=== PATIENT | female | born 1985 | race Hispanic/Latino ===

== ENCOUNTER 2019-12-15 18:01 | Emergency (ER) | payer SELFPAY ==
[2019-12-15 19:29] LABS: RAPID GROUP A STREP NEGATIVE (NEGATIVE)
== END 2019-12-15 20:10 | disposition home or self-care (01) ==
LOC: EDH 18:01
DX: J02.9 Acute pharyngitis, unspecified (principal); Z98.890 Other specified postprocedural states
CPT/HCPCS: 87804; 87880

== ENCOUNTER 2019-12-18 09:03 | Emergency (ER) | payer SELFPAY | END 2019-12-18 11:50 | disposition home or self-care (01) | LOC: EDH 09:03 | DX: K13.79 Other lesions of oral mucosa (principal); Z98.890 Other specified postprocedural states | CPT/HCPCS: 99281 ==

== ENCOUNTER 2020-02-24 19:33 | Emergency (ER) | payer OTHER | END 2020-02-24 21:29 | disposition home or self-care (01) | LOC: EDH 19:33 | DX: R07.89 Other chest pain (principal); R19.7 Diarrhea, unspecified; R03.0 Elevated blood-pressure reading, without diagnosis of hypertension; R11.0 Nausea; M25.512 Pain in left shoulder; Z87.891 Personal history of nicotine dependence; Z98.51 Tubal ligation status; Z98.890 Other specified postprocedural states | CPT/HCPCS: 87804 ==

== ENCOUNTER 2021-10-18 17:22 | Emergency (ER) | payer SELFPAY ==
[~2021-10-18] VITALS: Ht 162.6 cm; Wt 68.0 kg
[2021-10-18 18:40] LABS: BASOPHILS % (AUTO) 0.4 % (0.0-5.0); EOSINOPHILS % (AUTO) 1.5 % (0.0-8.0); HEMATOCRIT 43.5 % (36-48); LYMPHOCYTES % (AUTO) 9.3 % (21.0-51.0); MEAN CORPUSCULAR HEMOGLOBIN 31.5 pg (27.0-33.0); MEAN CORPUSCULAR HGB CONC 33.6 g/dL (32.0-36.0); NEUTROPHILS % (AUTO) 76.4 % (40.0-77.0); PLATELET COUNT (AUTO) 399 K/uL (130-400); RED BLOOD CELL COUNT(AUTO) 4.63 MIL/uL (4.00-5.50); RED CELL DISTRIBUTION WIDTH 12.9 % (11.0-15.5); WHITE BLOOD COUNT (AUTO) 13.9 K/uL (4.8-10.8)
[2021-10-18 18:50] LABS: CREATININE 0.8 mg/dL (0.5-1.5); POTASSIUM 3.4 mmol/L (3.5-5.1)
[2021-10-18 18:57] LABS: ALBUMIN 3.6 g/dL (3.5-5.0); BILIRUBIN,TOTAL 0.3 mg/dL (0.2-1.0); CRP QUANTITATIVE 59.4 mg/L (0.00-9.0)
[2021-10-18] MEDS ORDERED: 0.9%NACL 1000ML 1,000 ML IV SCH (19:30)
[2021-10-18] MEDS ORDERED: MAG/ALUM/SIMETH 30 ML UDCUP PO ONE (19:30)
[2021-10-18] MEDS ORDERED: CEFTRIAXONE 1G VIAL IVP ONE (19:30)
[2021-10-18] MEDS ORDERED: ACETAMINOPHEN WITH CODEINE 1 TAB TAB PO ONE (19:30)
[2021-10-18 21:00] VITALS: BP 145/98
[2021-10-18] MEDS ORDERED: FENTANYL CITRATE PF 50 MCG/1 ML 2ML VIAL IVP ONE (21:00)
[2021-10-18] MEDS ORDERED: CEFTRIAXONE 1G VIAL ONE (21:21)
[2021-10-18] MEDS: LIDOCAINE 1%-EPI 1:100,000 20 ML VIAL IJ SCH (21:45)
[2021-10-18] MEDS ORDERED: AMOX-429 PO (22:07)
[2021-10-18] MEDS ORDERED: PRED20TA3 PO (22:07)
[2021-10-18] MEDS ORDERED: DEXAMETHASONE 4 MG TAB PO SCH (22:30)
[2021-10-18] MEDS ORDERED: DEXAMETHASONE 4 MG TAB ONE (22:47)
[2021-10-18] MEDS ORDERED: ACETAMINOPHEN WITH CODEINE 1 TAB TAB ONE (22:47)
== END 2021-10-18 23:40 | disposition home or self-care (01) ==
LOC: EDH 17:22
DX: J36 Peritonsillar abscess (principal); Z79.52 Long term (current) use of systemic steroids
CPT/HCPCS: 36415; 42700; 70490; 71045; 80053; 81025; 83605; 85025; 86140; 87040 ×2; 96361; 96374; 96375; 99285; J0696; J3010; J3490; J7030; J8540

== ENCOUNTER 2023-10-24 06:51 | Emergency (ER) | payer BC ==
[~2023-10-24] VITALS: Ht 167.6 cm; Wt 77.1 kg
[~2023-10-24 06:51] MED LIST: ACET-2247 PO; AMOX-429 PO; AMOX1TAB16 PO; PRED20TA3 PO
[2023-10-24 06:56] VITALS: BP 152/74; PULSE 96; RESP 18
[2023-10-24] MEDS ORDERED: IBUP-2077 PO (08:18)
[2023-10-24] MEDS ORDERED: METH-662 PO (08:18)
== END 2023-10-24 08:30 | disposition home or self-care (01) ==
LOC: EDH 06:51
DX: S30.0XXA Contusion of lower back and pelvis, initial encounter (principal); Z79.52 Long term (current) use of systemic steroids; W18.39XA Other fall on same level, initial encounter; Y93.89 Activity, other specified; Y92.89 Other specified places as the place of occurrence of the external cause; Y99.8 Other external cause status

== ENCOUNTER 2024-04-19 21:29 | Emergency (ER) | payer BC, OTHER ==
[~2024-04-19] VITALS: Ht 167.6 cm; Wt 88.2 kg
[~2024-04-19 21:29] MED LIST changes: +IBUP-2077 PO; +METH-662 PO
[2024-04-19] MEDS: KETOROLAC 30MG VIAL (30MG/ML) IM ONE (22:50)
[2024-04-19] MEDS: TRIAMCINOLONE ACETONIDE 40 MG/ML 1ML VIAL IM ONE (22:51)
[2024-04-19] MEDS: ORPHENADRINE CITRATE 30 MG/ML ML IM ONE (22:51)
[2024-04-19] MEDS ORDERED: KETO10TA2 PO (23:55)
[2024-04-20 00:16] VITALS: BP 117/62; PULSE 72; RESP 16; O2SAT 100
== END 2024-04-20 00:22 | disposition home or self-care (01) ==
LOC: EDH 21:29
DX: M54.31 Sciatica, right side (principal); M25.551 Pain in right hip; M25.561 Pain in right knee; Z79.899 Other long term (current) drug therapy; Z98.890 Other specified postprocedural states
CPT/HCPCS: 99284; 96372 ×3; J3301; J1885; J2360